=== PATIENT | female | born 1970 | race Caucasian/White ===

== ENCOUNTER 2017-02-23 09:39 | Emergency (ER) | payer OTHER ==
[2017-02-23] MEDS ORDERED: HYDROmorphone 1 MG/ML 1 ML SYRINGE IVP STA (10:08)
[2017-02-23] MEDS ORDERED: SODIUM CHLORIDE 0.9% 1,000 ML IV STA (10:08)
[2017-02-23] MEDS ORDERED: ONDANSETRON 4 MG/2 ML VIAL IVP STA (10:08)
[2017-02-23] MEDS ORDERED: RX INFO: IV CONTRAST WAS GIVEN 1 EACH MISC MISCELLANE PRN (10:08)
--- NOTE | 2017-02-23 10:19 | ED ---
Abdominal Pain HPI - General Chief Complaint: Abdominal Pain Stated Complaint: Abd Pain Time Seen by Provider: 02/23/17 09:56 Source: patient, RN notes reviewed Mode of arrival: ambulatory Limitations: no limitations - History of Present Illness Initial Comments: Is a 46-year-old female presents emergency Department chief complaint of abdominal pain since Wednesday. Patient states has progressively gotten worse. Patient complains of right flank pain and states that she hadn't noticed that her urine has been cloudy and has a foul odor. She states she has no history UTI denies any dysuria at this time. Patient states she's had a fever at home. Patient states she just feels very miserable nausea vomiting very minimal diarrhea. Denies any chest pain or shortness of breath no headache no dizziness no neck stiffness. Patient had no prior abdominal surgeries. Patient states that she is postmenopausal has no menstrual cycle at this time. - Related Data Home Medications Medication Instructions Recorded Confirmed ALPRAZolam [Xanax] 0.5 mg PO ONCE PRN 02/23/17 02/23/17 Ibuprofen [Motrin] 800 mg PO ONCE PRN 02/23/17 02/23/17 Previous Rx's Medication Instructions Recorded Ciprofloxacin HCl [Cipro] 500 mg PO Q12HR #20 tablet 02/23/17 Hydrocodone/Acetaminophen [[place] 1 tab PO Q6HR PRN #15 tab 02/23/17 5-325] Ondansetron Odt [Zofran Odt] 4 mg PO Q8HR PRN #10 tab 02/23/17 Allergies Allergy/AdvReac Type Severity Reaction Status Date / Time No Known Allergies Allergy Verified 02/23/17 12:09 Review of Systems ROS Statement: Those systems with pertinent positive or pertinent negative responses have been documented in the HPI. ROS Other: All systems not noted in ROS Statement are negative. Past Medical History Past Medical History: No Reported History History of Any Multi-Drug Resistant Organisms: None Reported Past Surgical History: No Surgical Hx Reported Past Psychological History: No Psychological Hx Reported Smoking Status: Current every day smoker Past Alcohol Use History: None Reported Past Drug Use History: None Reported General Exam Limitations: no limitations General appearance: alert, in no apparent distress Head exam: Present: atraumatic, normocephalic, normal inspection Neck exam: Present: normal inspection. Absent: tenderness, meningismus, lymphadenopathy Respiratory exam: Present: normal lung sounds bilaterally. Absent: respiratory distress, wheezes, rales, rhonchi, stridor Cardiovascular Exam: Present: regular rate, normal rhythm, normal heart sounds. Absent: systolic murmur, diastolic murmur, rubs, gallop, clicks GI/Abdominal exam: Present: soft, tenderness (Moderate lower abdominal tenderness), normal bowel sounds. Absent: distended, guarding, rebound, rigid Back exam: Absent: CVA tenderness (R), CVA tenderness (L) Course Vital Signs 02/23/17 02/23/17 02/23/17 09:49 10:13 11:58 Temperature 97.5 F L 100.0 F H 99.9 F H Pulse Rate 95 81 Respiratory 20 17 Rate Blood Pressure 110/67 99/55 O2 Sat by Pulse 99 100 Oximetry Medical Decision Making - Medical Decision Making 46-year-old female presented emergency department for abdominal discomfort right flank pain. Patient appears to have pyelonephritis she has mild leukocytosis and low-grade temp. Patient will be given 2 g Rocephin emergency Department IV fluids and started on ciprofloxacin at home. Patient was offered admission though she states that she would rather go home at this time. Patient has no right upper quadrant abdominal pain to correlate for her dilated ducts and no elevation of her liver enzymes. This most leg is benign finding. Patient will follow palpation for recheck and further workup as needed. - Lab Data Result diagrams: 02/23/17 10:40 02/23/17 10:40 Lab Results 02/23/17 02/23/17 02/23/17 Range/Units 10:40 10:40 10:40 WBC 11.7 H (3.8-10.6) k/uL RBC 4.45 (3.80-5.40) m/uL Hgb 13.6 (11.4-16.0) gm/dL Hct 39.8 (34.0-46.0) % MCV 89.5 (80.0-100.0) fL MCH 30.6 (25.0-35.0) pg MCHC 34.2 (31.0-37.0) g/dL RDW 12.6 (11.5-15.5) % Plt Count 224 (150-450) k/uL Neutrophils % 75 % Lymphocytes % 16 % Monocytes % 6 % Eosinophils % 1 % Basophils % 1 % Neutrophils # 8.8 H (1.3-7.7) k/uL Lymphocytes # 1.8 (1.0-4.8) k/uL Monocytes # 0.7 (0-1.0) k/uL Eosinophils # 0.1 (0-0.7) k/uL Basophils # 0.1 (0-0.2) k/uL Sodium 140 (137-145) mmol/L Potassium 4.3 (3.5-5.1) mmol/L Chloride 105 (98-107) mmol/L Carbon Dioxide 25 (22-30) mmol/L Anion Gap 10 mmol/L BUN 5 L (7-17) mg/dL Creatinine 0.62 (0.52-1.04) mg/dL Est GFR (MDRD) Af Amer >60 (>60 ml/min/1.73 sqM) Est GFR (MDRD) Non-Af >60 (>60 ml/min/1.73 sqM) Glucose 78 (74-99) mg/dL Plasma Lactic Acid Javid 0.8 (0.7-2.0) mmol/L Calcium 9.1 (8.4-10.2) mg/dL Total Bilirubin 0.4 (0.2-1.3) mg/dL AST 24 (14-36) U/L ALT 26 (9-52) U/L Alkaline Phosphatase 85 (38-126) U/L Total Protein 7.2 (6.3-8.2) g/dL Albumin 4.2 (3.5-5.0) g/dL Amylase 30 (30-110) U/L Lipase 32 (23-300) U/L Urine Color Urine Appearance (Clear) Urine pH (5.0-8.0) Ur Specific [place] (1.001-1.035) Urine Protein (Negative) Urine Glucose (UA) (Negative) Urine Ketones (Negative) Urine Blood (Negative) Urine Nitrite (Negative) Urine Bilirubin (Negative) Urine Urobilinogen (<2.0) mg/dL Ur Leukocyte Esterase (Negative) Urine RBC (0-5) /hpf Urine WBC (0-5) /hpf Ur Squamous Epith Cells (0-4) /hpf Urine Bacteria (None) /hpf Urine Mucus (None) /hpf Urine HCG, Qual (Not Detectd) 02/23/17 02/23/17 Range/Units 11:55 11:55 WBC (3.8-10.6) k/uL RBC (3.80-5.40) m/uL Hgb (11.4-16.0) gm/dL Hct (34.0-46.0) % MCV (80.0-100.0) fL MCH (25.0-35.0) pg MCHC (31.0-37.0) g/dL RDW (11.5-15.5) % Plt Count (150-450) k/uL Neutrophils % % Lymphocytes % % Monocytes % % Eosinophils % % Basophils % % Neutrophils # (1.3-7.7) k/uL Lymphocytes # (1.0-4.8) k/uL Monocytes # (0-1.0) k/uL Eosinophils # (0-0.7) k/uL Basophils # (0-0.2) k/uL Sodium (137-145) mmol/L Potassium (3.5-5.1) mmol/L Chloride (98-107) mmol/L Carbon Dioxide (22-30) mmol/L Anion Gap mmol/L BUN (7-17) mg/dL Creatinine (0.52-1.04) mg/dL Est GFR (MDRD) Af Amer (>60 ml/min/1.73 sqM) Est GFR (MDRD) Non-Af (>60 ml/min/1.73 sqM) Glucose (74-99) mg/dL Plasma Lactic Acid Javid (0.7-2.0) mmol/L Calcium (8.4-10.2) mg/dL Total Bilirubin (0.2-1.3) mg/dL AST (14-36) U/L ALT (9-52) U/L Alkaline Phosphatase (38-126) U/L Total Protein (6.3-8.2) g/dL Albumin (3.5-5.0) g/dL Amylase (30-110) U/L Lipase (23-300) U/L Urine Color Light Yellow Urine Appearance Clear (Clear) Urine pH 7.0 (5.0-8.0) Ur Specific [place] 1.007 (1.001-1.035) Urine Protein Trace H (Negative) Urine Glucose (UA) Negative (Negative) Urine Ketones Negative (Negative) Urine Blood Negative (Negative) Urine Nitrite Negative (Negative) Urine Bilirubin Negative (Negative) Urine Urobilinogen <2.0 (<2.0) mg/dL Ur Leukocyte Esterase Large H (Negative) Urine RBC 2 (0-5) /hpf Urine WBC 71 H (0-5) /hpf Ur Squamous Epith Cells <1 (0-4) /hpf Urine Bacteria Few H (None) /hpf Urine Mucus Rare H (None) /hpf Urine HCG, Qual Not Detected (Not Detectd) Disposition Clinical Impression: Pyelonephritis Disposition: HOME SELF-CARE Condition: Stable Instructions: Kidney Infection (ED) Additional Instructions: Please return to the Emergency Department if symptoms worsen or any other concerns. Prescriptions: Ciprofloxacin HCl [Cipro] 500 mg PO Q12HR #20 tablet Hydrocodone/Acetaminophen [[place] 5-325] 1 tab PO Q6HR PRN #15 tab PRN Reason: Pain Ondansetron Odt [Zofran Odt] 4 mg PO Q8HR PRN #10 tab PRN Reason: Nausea Referrals: None,Stated [Primary Care Provider] - 1-2 days Time of Disposition: 13:31
[2017-02-23 10:58] LABS: Basophils # (A) 0.1 k/uL (0-0.2); Basophils % (A) 1 %; CH 29.6; CHCM 33.3; Eosinophils # (A) 0.1 k/uL (0-0.7); Eosinophils % (A) 1 %; HCT 39.8 % (34.0-46.0); HGB 13.6 gm/dL (11.4-16.0); Luc # (Auto) 0.25; Luc % (Auto) 2; Lymphocytes # (A) 1.8 k/uL (1.0-4.8); Lymphocytes % (A) 16 %; MCH 30.6 pg (25.0-35.0); MCHC 34.2 g/dL (31.0-37.0); MCV 89.5 fL (80.0-100.0); Mean Platelet Volume 8.1; Monocytes # (A) 0.7 k/uL (0-1.0); Monocytes % (A) 6 %; Neutrophils # (A) 8.8 k/uL (1.3-7.7); Neutrophils % (A) 75 %; RBC 4.45 m/uL (3.80-5.40); RDW 12.6 % (11.5-15.5); WBC 11.7 k/uL (3.8-10.6); WBC (Perox) 11.91
[2017-02-23 11:10] LABS: ALT 26 U/L (9-52); AST 24 U/L (14-36); Alkaline Phosphatase 85 U/L (38-126); Amylase 30 U/L (30-110); Anion Gap 10 mmol/L; Blood Urea Nitrogen 5 mg/dL (7-17); Calcium 9.1 mg/dL (8.4-10.2); Carbon Dioxide 25 mmol/L (22-30); Chloride 105 mmol/L (98-107); Glucose 78 mg/dL (74-99); Non-African American GFR(MDRD) >60 (>60 ml/min/1.73 sqM); Potassium 4.3 mmol/L (3.5-5.1); Sodium 140 mmol/L (137-145); Total Bilirubin 0.4 mg/dL (0.2-1.3); Total Protein 7.2 g/dL (6.3-8.2)
[2017-02-23 12:20] LABS: Appearance,Urine Clear (Clear); Bacteria,Urine Few /hpf; Bilirubin,Urine Negative (Negative); Glucose,Urine (UA) Negative (Negative); Ketones,Urine Negative (Negative); Leukocyte Esterase,Urine Large (Negative); Mucus,Urine Rare /hpf; Nitrite,Urine Negative (Negative); Particle Count 2248; Protein,Urine Trace (Negative); RBC,Urine 2 /hpf (0-5); Specific Gravity,Urine 1.007 (1.001-1.035); Squamous Epithelial Cell,Urine <1 /hpf (0-4); UA Billing (MACRO vs. MICRO) MICRO; Urobilinogen,Urine <2.0 mg/dL (<2.0); WBC,Urine 71 /hpf (0-5)
--- NOTE | 2017-02-23 13:13 | CT ---
EXAMINATION TYPE: CT abdomen pelvis w con DATE OF EXAM: 02/23/2017 COMPARISON: NONE HISTORY: Abdominal pain CT DLP: 742 mGycm Automated exposure control for dose reduction was used. CONTRAST: CT scan of the abdomen pelvis is performed with IV Contrast, patient injected with 100 ml mL of Omnip aque 300. FINDINGS- LUNG BASES-subsegmental linear changes at the lung bases. 5 mm pleural-based nodule right lower lobe posteriorly. LIVER/GB-mild intrahepatic biliary prominence of the ducts. No obvious gallstone. Common bile duct me asures prominent distally at 9 mm. No definite stone. PANCREAS- No gross abnormality is seen. SPLEEN- No gross abnormality is seen. ADRENALS- No gross abnormality is seen. KIDNEYS/BLADDER-no hydronephrosis or nephrolithiasis. Small hypodensities within the kidneys are too small to characterize but likely related to cysts. There is a somewhat heterogeneous pattern of enhan cement of the kidneys. BOWEL- no bowel dilatation. Normal appendix. LYMPH NODES- No greater than 1cm abdominal or pelvic lymph nodes areappreciated. OSSEOUS STRUCTURES- No significant abnormality is seen. OTHER- 3.2 similar right adnexal cyst. Small amount of free fluid in the pelvis. Pelvic varices note d in the uterus somewhat heterogeneous. IMPRESSION- 1. Mild intra and extra hepatic biliary ductal dilation with no definite stone. Correlate with ERCP a s clinically warranted. 2. 3.2 cm right adnexal cyst likely ovarian with a small amount of free fluid. Pelvic varices and het erogeneous appearance of the uterus also noted correlate clinically. 3. Heterogeneous enhancement of the kidneys greater on the right. This can occasionally be related to the phase of imaging. Correlate with urinalysis to exclude pyelonephritis. Vasculitis also a conside ration. 4. 5 mm pleural-based nodule right lower lobe.
[2017-02-23] MEDS ORDERED: SODIUM CHLORIDE 0.9% 1,000 ML IV ONE (13:27)
[2017-02-23] MEDS ORDERED: ONDANSETRON 4 MG ODT STARTER PACK 2 TAB BTL PO STA (13:31)
[2017-02-23] MEDS ORDERED: cefTRIAXone 2,000 MG in SODIUM CHLORIDE 0.9% 100 ML IVPB STA (13:31)
[2017-02-23 13:36] VITALS: RESP 18
[2017-02-23] MEDS ORDERED: ACETAMINOPHEN TAB 500 MG TAB PO STA (14:48)
[2017-02-23 15:29] VITALS: BP 104/58; PULSE 83; TEMP 101.1
== END 2017-02-23 15:29 | disposition home or self-care (01) ==
LOC: EC 09:39
DX: N12 Tubulo-interstitial nephritis, not specified as acute or chronic (principal); D72.829 Elevated white blood cell count, unspecified; R11.2 Nausea with vomiting, unspecified; R19.7 Diarrhea, unspecified; F17.200 Nicotine dependence, unspecified, uncomplicated
CPT/HCPCS: 36415; 80053; 82150; 83605; 83690; 85025; 81001; 81025; 87040; 87086; 74177; 99284; 96365; 96375 ×2; 96361 ×2; J2405; J0696; J1170; Q9967; S0119; 87077; 87186

== ENCOUNTER 2017-07-21 19:16 | Inpatient (IN) | payer MEDICAID, OTHER ==
[2017-07-21] MEDS ORDERED: ACTIVATED CHARCOAL-SORBITOL 50 GM/240 ML BOTTLE PO STA (19:49)
--- NOTE | 2017-07-21 20:17 | ED ---
General Adult HPI - General Source: patient, police, EMS, RN notes reviewed Mode of arrival: EMS Limitations: no limitations <Benjamín Santiago - Last Filed: 07/21/17 20:15> <Magdi Gaston - Last Filed: 07/22/17 00:05> - General Chief complaint: Overdose Stated complaint: Suicidal Time Seen by Provider: 07/21/17 20:09 - History of Present Illness Initial comments: Patient is a 46-year-old female presenting to the emergency department following an overdose. Patient has difficulty with her kids. Patient states she took approximately 6 heart pills and 6 Xanax this morning. Patient states this was sometime around 8 or 9 this morning. No alcohol use. Patient is depressed with suicidal thoughts. No homicidal thoughts. No hallucinations. No alcohol or street drug use. (Benjamín Santiago) - Related Data Home Medications Medication Instructions Recorded Confirmed Ibuprofen [Motrin] 800 mg PO AC-BID PRN 02/23/17 07/21/17 ALPRAZolam [Xanax] 1 mg PO BID PRN 07/21/17 07/21/17 HYDROcodone/APAP 10-325MG [[place] 0.5 tab PO DAILY PRN 07/21/17 07/21/17 10-325] Metoprolol Succinate [Toprol XL] 12.5 mg PO DAILY 07/21/17 07/21/17 Venlafaxine HCl [Effexor XR] 37.5 mg PO DAILY 07/21/17 07/21/17 Allergies Allergy/AdvReac Type Severity Reaction Status Date / Time No Known Allergies Allergy Verified 07/21/17 19:44 Review of Systems ROS Other: All systems not noted in ROS Statement are negative. Constitutional: Denies: fever Eyes: Denies: eye pain ENT: Denies: ear pain Respiratory: Denies: cough Cardiovascular: Reports: chest pain (Patient has been having chest pain and anxiety recently) Endocrine: Denies: fatigue Gastrointestinal: Denies: abdominal pain Genitourinary: Denies: dysuria Musculoskeletal: Denies: back pain Skin: Denies: rash Neurological: Denies: weakness <Benjamín Santiago - Last Filed: 07/21/17 20:15> ROS Other: All systems not noted in ROS Statement are negative. <Magdi Gaston - Last Filed: 07/22/17 00:05> ROS Statement: Those systems with pertinent positive or pertinent negative responses have been documented in the HPI. Past Medical History Past Medical History: No Reported History History of Any Multi-Drug Resistant Organisms: None Reported Past Surgical History: No Surgical Hx Reported Past Psychological History: No Psychological Hx Reported Smoking Status: Current every day smoker Past Alcohol Use History: None Reported Past Drug Use History: Marijuana <Benjamín Santiago - Last Filed: 07/21/17 20:15> General Exam Limitations: no limitations General appearance: alert, in no apparent distress Head exam: Present: atraumatic Eye exam: Present: normal appearance ENT exam: Present: normal oropharynx Neck exam: Present: normal inspection Respiratory exam: Present: normal lung sounds bilaterally Cardiovascular Exam: Present: regular rate, normal rhythm Expanded Peripheral pulses: 2+: Radial (R), Radial (L), Dorsalis Pedis (R), Dorsalis Pedis (L) GI/Abdominal exam: Present: soft. Absent: tenderness Extremities exam: Present: normal inspection. Absent: pedal edema, calf tenderness Neurological exam: Present: alert Psychiatric exam: Present: depressed, flat affect Skin exam: Present: normal color <Benjamín Santiago - Last Filed: 07/21/17 20:15> Vital Signs 07/21/17 07/21/17 07/21/17 19:33 20:37 21:50 Temperature 97.6 F Pulse Rate 68 82 71 Pulse Rate [ Right] Respiratory 18 16 18 Rate Blood Pressure 104/60 115/63 99/71 Blood Pressure [Right Arm] O2 Sat by Pulse 98 98 98 Oximetry 07/22/17 00:00 Temperature 97.1 F L Pulse Rate Pulse Rate [ 77 Right] Respiratory 14 Rate Blood Pressure Blood Pressure 113/74 [Right Arm] O2 Sat by Pulse 98 Oximetry Medical Decision Making <Benjamín Santiago - Last Filed: 07/21/17 20:15> - Lab Data Result diagrams: 07/21/17 19:30 07/21/17 19:30 <Magdi Gaston - Last Filed: 07/22/17 00:05> - Medical Decision Making 46 female was seen and evaluated with psychiatry, patient will be admitted for psychiatric evaluation and treatment (Magdi Gaston) - Lab Data Lab Results 07/21/17 07/21/17 07/21/17 Range/Units 19:30 19:30 19:30 WBC 10.5 (3.8-10.6) k/uL RBC 4.34 (3.80-5.40) m/uL Hgb 12.5 (11.4-16.0) gm/dL Hct 40.1 (34.0-46.0) % MCV 92.6 (80.0-100.0) fL MCH 28.7 (25.0-35.0) pg MCHC 31.0 (31.0-37.0) g/dL RDW 14.4 (11.5-15.5) % Plt Count 212 (150-450) k/uL Neutrophils % 63 % Lymphocytes % 27 % Monocytes % 6 % Eosinophils % 1 % Basophils % 1 % Neutrophils # 6.6 (1.3-7.7) k/uL Lymphocytes # 2.9 (1.0-4.8) k/uL Monocytes # 0.6 (0-1.0) k/uL Eosinophils # 0.2 (0-0.7) k/uL Basophils # 0.1 (0-0.2) k/uL PT (9.0-12.0) sec INR (<1.2) Sodium 143 (137-145) mmol/L Potassium 4.3 (3.5-5.1) mmol/L Chloride 106 (98-107) mmol/L Carbon Dioxide 27 (22-30) mmol/L Anion Gap 10 mmol/L BUN 8 (7-17) mg/dL Creatinine 0.70 (0.52-1.04) mg/dL Est GFR (MDRD) Af Amer >60 (>60 ml/min/1.73 sqM) Est GFR (MDRD) Non-Af >60 (>60 ml/min/1.73 sqM) Glucose 73 L (74-99) mg/dL Calcium 9.5 (8.4-10.2) mg/dL Total Bilirubin 0.3 (0.2-1.3) mg/dL AST 31 (14-36) U/L ALT 37 (9-52) U/L Alkaline Phosphatase 69 (38-126) U/L Total Creatine Kinase 43 (30-135) U/L CK-MB (CK-2) 0.3 (0.0-2.4) ng/mL CK-MB (CK-2) Rel Index 0.7 Troponin I <0.012 (0.000-0.034) ng/mL Total Protein 7.2 (6.3-8.2) g/dL Albumin 4.2 (3.5-5.0) g/dL Urine HCG, Qual (Not Detectd) Salicylates <1.0 mg/dL Urine Opiates Screen (NotDetected) Ur Oxycodone Screen (NotDetected) Urine Methadone Screen (NotDetected) Ur Propoxyphene Screen (NotDetected) Acetaminophen <10.0 ug/mL Ur Barbiturates Screen (NotDetected) U Tricyclic Antidepress (NotDetected) Ur Phencyclidine Scrn (NotDetected) Ur Amphetamines Screen (NotDetected) U Methamphetamines Scrn (NotDetected) U Benzodiazepines Scrn (NotDetected) Urine Cocaine Screen (NotDetected) U Marijuana (THC) Screen (NotDetected) Serum Alcohol <10 mg/dL 07/21/17 07/21/17 07/21/17 Range/Units 19:30 21:27 21:27 WBC (3.8-10.6) k/uL RBC (3.80-5.40) m/uL Hgb (11.4-16.0) gm/dL Hct (34.0-46.0) % MCV (80.0-100.0) fL MCH (25.0-35.0) pg MCHC (31.0-37.0) g/dL RDW (11.5-15.5) % Plt Count (150-450) k/uL Neutrophils % % Lymphocytes % % Monocytes % % Eosinophils % % Basophils % % Neutrophils # (1.3-7.7) k/uL Lymphocytes # (1.0-4.8) k/uL Monocytes # (0-1.0) k/uL Eosinophils # (0-0.7) k/uL Basophils # (0-0.2) k/uL PT 10.6 (9.0-12.0) sec INR 1.1 (<1.2) Sodium (137-145) mmol/L Potassium (3.5-5.1) mmol/L Chloride (98-107) mmol/L Carbon Dioxide (22-30) mmol/L Anion Gap mmol/L BUN (7-17) mg/dL Creatinine (0.52-1.04) mg/dL Est GFR (MDRD) Af Amer (>60 ml/min/1.73 sqM) Est GFR (MDRD) Non-Af (>60 ml/min/1.73 sqM) Glucose (74-99) mg/dL Calcium (8.4-10.2) mg/dL Total Bilirubin (0.2-1.3) mg/dL AST (14-36) U/L ALT (9-52) U/L Alkaline Phosphatase (38-126) U/L Total Creatine Kinase (30-135) U/L CK-MB (CK-2) (0.0-2.4) ng/mL CK-MB (CK-2) Rel Index Troponin I (0.000-0.034) ng/mL Total Protein (6.3-8.2) g/dL Albumin (3.5-5.0) g/dL Urine HCG, Qual Not Detected (Not Detectd) Salicylates mg/dL Urine Opiates Screen Detected H (NotDetected) Ur Oxycodone Screen Not Detected (NotDetected) Urine Methadone Screen Not Detected (NotDetected) Ur Propoxyphene Screen Not Detected (NotDetected) Acetaminophen ug/mL Ur Barbiturates Screen Not Detected (NotDetected) U Tricyclic Antidepress Not Detected (NotDetected) Ur Phencyclidine Scrn Not Detected (NotDetected) Ur Amphetamines Screen Not Detected (NotDetected) U Methamphetamines Scrn Not Detected (NotDetected) U Benzodiazepines Scrn Detected H (NotDetected) Urine Cocaine Screen Not Detected (NotDetected) U Marijuana (THC) Screen Detected H (NotDetected) Serum Alcohol mg/dL Disposition <Benjamín Santiago - Last Filed: 07/21/17 20:15> <Magdi Gaston - Last Filed: 07/22/17 00:05> Clinical Impression: Drug overdose, Suicide attempt by multiple drug overdose Disposition: TRANSFER TO PSYCH HOSP/UNIT Condition: Fair
[2017-07-21 20:40] LABS: Basophils # (A) 0.1 k/uL (0-0.2); Basophils % (A) 1 %; Eosinophils # (A) 0.2 k/uL (0-0.7); Eosinophils % (A) 1 %; HCT 40.1 % (34.0-46.0); HGB 12.5 gm/dL (11.4-16.0); Lymphocytes # (A) 2.9 k/uL (1.0-4.8); Lymphocytes % (A) 27 %; MCH 28.7 pg (25.0-35.0); MCV 92.6 fL (80.0-100.0); Mean Platelet Volume 8.8; Monocytes # (A) 0.6 k/uL (0-1.0); Monocytes % (A) 6 %; Neutrophils # (A) 6.6 k/uL (1.3-7.7); Neutrophils % (A) 63 %; Platelet Count 212 k/uL (150-450); RBC 4.34 m/uL (3.80-5.40); RDW 14.4 % (11.5-15.5); WBC 10.5 k/uL (3.8-10.6)
[2017-07-21 20:47] LABS: INR 1.1 (<1.2); Prothrombin Time 10.6 sec (9.0-12.0)
[2017-07-21 20:51] LABS: ALT 37 U/L (9-52); AST 31 U/L (14-36); Acetaminophen <10.0 ug/mL; Albumin 4.2 g/dL (3.5-5.0); Alcohol <10 mg/dL; Alkaline Phosphatase 69 U/L (38-126); Anion Gap 10 mmol/L; Blood Urea Nitrogen 8 mg/dL (7-17); Calcium 9.5 mg/dL (8.4-10.2); Carbon Dioxide 27 mmol/L (22-30); Chloride 106 mmol/L (98-107); Glucose 73 mg/dL (74-99); Potassium 4.3 mmol/L (3.5-5.1); Salicylate <1.0 mg/dL; Sodium 143 mmol/L (137-145); Total Bilirubin 0.3 mg/dL (0.2-1.3); Total Protein 7.2 g/dL (6.3-8.2)
[2017-07-21 21:04] LABS: Creatine Kinase 43 U/L (30-135)
[2017-07-21 21:16] LABS: Creatine Kinase MB 0.3 ng/mL (0.0-2.4); Troponin I <0.012 ng/mL (0.000-0.034)
[2017-07-21 21:50] LABS: Amphetamine Screen,Urine Not Detected (NotDetected); Barbiturate Screen,Urine Not Detected (NotDetected); Benzodiazepines Screen,Urine Detected (NotDetected); Cocaine Screen,Urine Not Detected (NotDetected); Methadone Screen, Urine Not Detected (NotDetected); Opiate Screen,Urine Detected (NotDetected); Oxycodone Screen, Urine Not Detected (NotDetected); Phencyclidine Screen,Urine Not Detected (NotDetected); Tricyclic Antidepressant,Urine Not Detected (NotDetected); Urn Cannabinoid Scrn Detected (NotDetected)
[2017-07-21] MEDS ORDERED: MAG HYDROX/AL HYDROX/SIMETH 30 ML CUP PO PRN (23:14)
[2017-07-21] MEDS ORDERED: MAGNESIUM HYDROXIDE 2,400 MG/10 ML CUP PO PRN (23:14)
--- NOTE | 2017-07-22 10:56 | P.HP ---
Psychiatric H&P - . History & Physical: Allergies Allergy/AdvReac Type Severity Reaction Status Date / Time No Known Allergies Allergy Verified 07/21/17 19:44 Vital Signs Temp 97.4 F L 07/22/17 07:06 Pulse 80 07/22/17 07:06 Resp 16 07/22/17 07:06 BP 118/73 07/22/17 07:06 Pulse Ox 98 07/22/17 00:00 Intake & Output 07/21/17 07/22/17 07/22/17 18:59 06:59 18:59 Weight 53.3 kg Laboratory Last Values WBC 10.5 k/uL (3.8-10.6) 07/21/17 19:30 RBC 4.34 m/uL (3.80-5.40) 07/21/17 19:30 Hgb 12.5 gm/dL (11.4-16.0) 07/21/17 19:30 Hct 40.1 % (34.0-46.0) 07/21/17 19:30 MCV 92.6 fL (80.0-100.0) 07/21/17 19:30 MCH 28.7 pg (25.0-35.0) 07/21/17 19:30 MCHC 31.0 g/dL (31.0-37.0) 07/21/17 19:30 RDW 14.4 % (11.5-15.5) 07/21/17 19:30 Plt Count 212 k/uL (150-450) 07/21/17 19:30 Neutrophils % 63 % 07/21/17 19:30 Lymphocytes % 27 % 07/21/17 19:30 Monocytes % 6 % 07/21/17 19:30 Eosinophils % 1 % 07/21/17 19:30 Basophils % 1 % 07/21/17 19:30 Neutrophils # 6.6 k/uL (1.3-7.7) 07/21/17 19:30 Lymphocytes # 2.9 k/uL (1.0-4.8) 07/21/17 19:30 Monocytes # 0.6 k/uL (0-1.0) 07/21/17 19:30 Eosinophils # 0.2 k/uL (0-0.7) 07/21/17 19:30 Basophils # 0.1 k/uL (0-0.2) 07/21/17 19:30 PT 10.6 sec (9.0-12.0) 07/21/17 19:30 INR 1.1 (<1.2) 07/21/17 19:30 Sodium 143 mmol/L (137-145) 07/21/17 19:30 Potassium 4.3 mmol/L (3.5-5.1) 07/21/17 19:30 Chloride 106 mmol/L (98-107) 07/21/17 19:30 Carbon Dioxide 27 mmol/L (22-30) 07/21/17 19:30 Anion Gap 10 mmol/L 07/21/17 19:30 BUN 8 mg/dL (7-17) 07/21/17 19:30 Creatinine 0.70 mg/dL (0.52-1.04) 07/21/17 19:30 Est GFR (MDRD) Af Amer >60 (>60 ml/min/1.73 sqM) 07/21/17: Est GFR (MDRD) Non-Af >60 (>60 ml/min/1.73 sqM) 07/21/17 19:30 Glucose 73 mg/dL (74-99) L 07/21/17 19:30 Calcium 9.5 mg/dL (8.4-10.2) 07/21/17: Total Bilirubin 0.3 mg/dL (0.2-1.3) 07/21/17 19:30 AST 31 U/L (14-36) 07/21/17: ALT 37 U/L (9-52) 07/21/17 19: Alkaline Phosphatase 69 U/L (38-126) 07/21/17 19:30 Total Creatine Kinase 43 U/L (30-135) 07/21/17 19:30 CK-MB (CK-2) 0.3 ng/mL (0.0-2.4) 07/21/17 19: CK-MB (CK-2) Rel Index 0.7 07/21/17 19:30 Troponin I <0.012 ng/mL (0.000-0.034) 07/21/17 19:30 Total Protein 7.2 g/dL (6.3-8.2) 07/21/17 19:30 Albumin 4.2 g/dL (3.5-5.0) 07/21/17 19:30 TSH 3.380 mIU/L (0.465-4.680) 07/21/17 19:30 Urine HCG, Qual Not Detected (Not Detectd) 07/21/17 21:27 Salicylates <1.0 mg/dL 07/21/17 19:30 Urine Opiates Screen Detected (NotDetected) H 07/21/17 21:27 Ur Oxycodone Screen Not Detected (NotDetected) 07/21/17 21:27 Urine Methadone Screen Not Detected (NotDetected) 07/21/17 21:27 Ur Propoxyphene Screen Not Detected (NotDetected) 07/21/17 21:27 Acetaminophen <10.0 ug/mL 07/21/17 19:30 Ur Barbiturates Screen Not Detected (NotDetected) 07/21/17 21:27 U Tricyclic Antidepress Not Detected (NotDetected) 07/21/17 21:27 Ur Phencyclidine Scrn Not Detected (NotDetected) 07/21/17 21:27 Ur Amphetamines Screen Not Detected (NotDetected) 07/21/17 21:27 U Methamphetamines Scrn Not Detected (NotDetected) 07/21/17 21:27 U Benzodiazepines Scrn Detected (NotDetected) H 07/21/17 21:27 Urine Cocaine Screen Not Detected (NotDetected) 07/21/17 21:27 U Marijuana (THC) Screen Detected (NotDetected) H 07/21/17 21:27 Serum Alcohol <10 mg/dL 07/21/17 19:30 07/22/17 10:46 IDENTIFYING DATA: This patient is a 46-year-old female who was admitted to the mental health unit after a suicide attempt via medication overdose. HPI: The patient presents with a petition completed by a senior grants officer stating "Ms. Vicente stated she has wanted to hurt/kill herself every day for a while now ". The patient states that she has been severely depressed for an extended period of time. She states that her mood is depressed she feels hopeless she has frequently been tearful. Sleep has been poor appetite is decreased and energy has been low. She indicates that she will stay in bed all day due to a lack of motivation. She reported overdosing on 6 Xanax and 6 metoprolol yesterday. Prior to that she had written a suicide note telling her fianc it was not his fault and instructing him how to distribute her possessions. She stated to me this morning "I wanted to go to sleep and not wake up". She describes having anxiety constantly. It appears that she suffers from panic attacks. She felt overwhelmed yesterday because of an argument with her mother and sister whom are her closest supports. This occurs in the context of ongoing discord with her 3 adult children. Apparently recently her oldest daughter informed her that she is but she would never see her grandchild. The patient states she cannot survive this type of treatment from her family any longer. She endorses no history of hypomanic or manic episodes. She is endorsing no symptoms of psychosis. She denies having any firearms at home. PAST PSYCHIATRIC HISTORY: No prior inpatient psychiatric care no history of other suicide attempts. She has been treated with Zoloft Paxil Cymbalta in the past prescribed by primary care or gynecology. She states her primary care physician recently prescribed Effexor XR but she did not take the medication. She reports 2 of her friends took an antidepressant and hung themselves. PMH: Tachycardia treated with metoprolol, history of migraines she is prescribed [place], she's given Xanax as well by her primary care physician for insomnia ALLERGIES: NO KNOWN DRUG ALLERGIES MEDICATIONS: As above CHEMICAL DEPENDENCY HISTORY: She reports no use of alcohol, she uses marijuana more often recently she describes using no other illicit drugs she's never been placed in residential treatment for chemical dependency reasons FAMILY PSYCHIATRIC HISTORY: None reported, no suicides in the family FAMILY CHEMICAL DEPENDENCY HISTORY: None reported SOCIAL HISTORY: The patient is 46 years old she is she resides with her fiance of 6 years. She states that relationship is "the best". She has 3 adult children ages 20, 22, and 24. They do not reside with her. She has 1 brother and 1 sister. She identifies her sister and mother as being her primary supports. 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 She has no history of service. She graduated high school and attended 2 years of schooling afterwards. She states that her parents when she was very young and her mother primarily raised her area did they moved numerous times in [place] and across the country during childhood. She endorses no legal history she endorses no history of abuse MENTAL STATUS EXAM: The patient is a thin female appearing her stated age she is dressed in hospital gowns and is wearing a blanket over top. The patient endorses a depressed mood with hopelessness feelings. She admits that she attempted to end her life yesterday via medication overdose. With that said she lacks insight and is demanding to be discharged today and states she will not take an antidepressant medication. She reports constant feelings of anxiety. She demonstrates no tangential thinking loose associations or flight of ideas. Affect is dysphoric and tearful during the session. She demonstrates no verbal or physical aggressiveness. She demonstrates no abnormal involuntary movements. There is no evidence of hypomania or neyda at this time. She reports no auditory or visual hallucinations she is endorsing no specific delusions. Insight and judgment are impaired. She is oriented to person place and date. She is able to spell world backwards. STRENGTHS/WEAKNESSES: Strengths: Housing, supportive [facility] weaknesses: Recent overdose with lack of insight into need for treatment, discord with children INTELLECTUAL FUNCTIONING: Average IMPRESSIONS: [] 1. Major depressive disorder recurrent severe without psychosis, rule out generalized anxiety disorder, rule out cannabis use disorder 2. Rule out cluster B traits 3. Reported history of tachycardia and migraines PLAN: The patient has been admitted to the mental health unit she is unwilling to sign in voluntarily. She is an acute safety risk and requires further observation and treatment. I will complete a second clinical certificate so that she remains hospitalized for her safety. I attempted to discuss antidepressant options with her but she is refusing medication at this time. She indicates having severe panic attacks I will prescribe Ativan 1 mg up to twice daily as needed for anxiety at least temporarily. She will be seen by internal medicine for routine history and physical exam. If her blood pressure elevates or she demonstrates tachycardia we will reinitiate the metoprolol. Social work has attempted to reach the patient's fianc for collateral information. Social work has met with the patient to complete a psychosocial assessment. We'll monitor her for safety and encourage her participation in the milieu.
[2017-07-22] MEDS: LORazepam 1 MG TAB PO PRN (18:32)
--- NOTE | 2017-07-22 23:06 | CONS ---
CONSULTATION DATE OF SERVICE: 07/22/2017. REASON FOR CONSULTATION: Advice regarding overdose and other multiple medical issues requested by Dr. Johnson. HISTORY OF PRESENT ILLNESS: This 46-year-old woman with a past medical history of multiple medical problems, including history of smoking, history of THC, being followed by Dr. Lzi in the outpatient setting, apparently admitted after overdose of 6 Xanax and 6 metoprolol pills. There is no history of any fever, rigors. No history of headache, loss of consciousness, seizures. Patient has a significant history of depression. PAST MEDICAL HISTORY: History of nicotine dependence, history of THC. MEDICATIONS PRIOR TO ADMISSION: Include home medications are: 1. Effexor XR 37.5 mg p.o. daily. 2. The patient is now taking Toprol-XL 12.5 mg daily. 3. Motrin 800 mg b.i.d. p.r.n. 4. Sparks 10 mg daily p.r.n. 5. Xanax 1 mg daily b.i.d. p.r.n. ALLERGIES: None. FAMILY HISTORY: No history of heart disease, strokes in the family. SOCIAL HISTORY: History of smoking. History of THC. REVIEW OF SYSTEMS: ENT: No diminished hearing, diminished vision. CARDIOVASCULAR: No angina or palpitations. RESPIRATORY: No cough or hemoptysis. GI: No nausea, vomiting. : No dysuria. NERVOUS: No numbness, weakness. ALLERGY/IMMUNOLOGY: No asthma, hay fever. MUSCULOSKELETAL: As mentioned earlier. HEMATOLOGY/ONCOLOGY: No history of anemia. ENDOCRINE: No history of diabetes, hypothyroidism. CONSTITUTIONAL: As mentioned earlier. DERMATOLOGY: Negative. RHEUMATOLOGY: Negative. PSYCHIATRY: As mentioned earlier. PHYSICAL EXAMINATION: Alert and oriented x3. Pulse is 71, blood pressure 99/70, respirations 18, temperature 97.1, pulse ox 98% on room air. HEENT: Conjunctivae normal. Oral mucosa moist. NECK: No jugular venous distention. No carotid bruits. No lymph node enlargement. CARDIOVASCULAR: S1, S2 muffled. No S3. No S4. RESPIRATORY: Breath sounds diminished in the bases. No rhonchi. No crackles. ABDOMEN: Soft, nontender. No mass palpable. LEGS: No edema. No swelling. NERVOUS SYSTEM: Higher functions as mentioned earlier. Cranial nerves 2-12 grossly intact. Moves all 4 limbs. No focal motor or sensory deficits. LYMPHATICS: No lymph node in the neck or axillae. SKIN: No ulcer, rash or bleeding. LABS: At this time shows WBC 10.1, hemoglobin is 12.5 and glucose 73. Drug screen is positive for opiates and benzodiazepine, THC. ASSESSMENT: 1. Status post overdose of Xanax and metoprolol. 2. Depression. 3. Positive THC. 4. History of ongoing nicotine dependence. RECOMMENDATIONS AND DISCUSSION: In this 46-year-old woman who presented after overdose, at this time currently patient is medically stable. The basic labs, including the LFTs, also normal. I would recommend to continue to followup in the outpatient setting and otherwise smoking cessation has been advised. Will follow the patient closely with you. Thank you, Dr. Johnson, for letting us participate in this patient's care. Patient may be asked to follow up with Dr. Johnson closely. [id number] / ETHANN: [id number] /
[2017-07-23] MEDS: LORazepam 1 MG TAB PO PRN ×2 (08:24→17:13)
--- NOTE | 2017-07-23 11:22 | P.PN ---
Progress Note - Text interval history: The patient is found in the hallway she follows me to an interview room. She continues to endorse a depressed mood. Social work states they make contact with her fianc and her fianc states she has made more suicidal statements even while on the mental health unit. She reports having difficulty with sleep. We discussed her involuntary status and that she will have her deferral conference today. Again we discussed medication options in some detail. She was amenable to letting me start Lexapro and we discussed using trazodone at bedtime. She continues to not understand how she is expected to live without being involved in her children's lives or her grandchild's life. Mental status exam: The patient is alert she presents with adequate hygiene grooming she is dressed in her own clothing. Eye contact is appropriate speech is fluent spontaneous nonpressured. She maintains a bland affect throughout the session. She endorses a depressed and anxious mood with ongoing hopeless thoughts. She continues to assert it was her plan to when she took the medication overdose. There is no evidence of psychosis hypomania or neyda. She demonstrates no verbal or physical aggressiveness no abnormal involuntary movements. She remains oriented to person place and date. Plan: The patient will be started on Lexapro 10 mg daily trazodone 50 mg at bedtime Ativan 1 mg twice daily as needed for anxiety. We will monitor her for safety and encourage her participation in the milieu. She requires continued inpatient psychiatric care. We will await the outcome of her deferral conference.
[2017-07-23] MEDS: ESCITALOPRAM 10 MG TAB PO SCH (11:34)
[2017-07-23] MEDS: ACETAMINOPHEN TAB 325 MG TAB PO PRN (14:48)
[2017-07-23] MEDS ORDERED: traZODone HCL 50 MG TAB PO SCH (21:00)
[2017-07-24] MEDS: LORazepam 1 MG TAB PO PRN ×2 (00:34→18:57)
[2017-07-24] MEDS: ACETAMINOPHEN TAB 325 MG TAB PO PRN ×3 (00:34→12:10)
[2017-07-24] MEDS: ESCITALOPRAM 10 MG TAB PO SCH (09:11)
--- NOTE | 2017-07-24 11:45 | P.PN ---
Progress Note - Text interval history: The patient is found in group she follows me to an interview room. She reports having difficulty sleeping last night she reports not sleeping at all however staff recorded 5 hours. She states that she is attending groups and trying to make the best of it. She is happy that she is able to get input from younger patient's that are struggling with their mothers as she predominantly worries about her relationship with her children. She states she's had supportive conversations with her fianc and expects a visit from him this evening. Mental status exam: The patient is a thin female appearing her stated age she has good hygiene she is dressed in her own clothing. Eye contact is appropriate speech is fluent she reports ongoing sadness and hopelessness thinking but no acute suicidal ideation today she is starting to engage in the milieu. She is endorsing no symptoms of psychosis there is no evidence of hypomania or neyda. She demonstrates no verbal or physical aggressiveness or any abnormal involuntary movements. She remains oriented to person place and date. She maintains a constricted affect throughout the session. Plan: The patient will continue on her current medications however I will titrate the trazodone 100 mg at bedtime. She is encouraged not to nap during the day today. She has no questions regarding Lexapro. We will monitor her for safety and encourage full participation in the milieu.
[2017-07-24] MEDS ORDERED: traZODone HCL 100 MG TAB PO SCH (21:00)
[2017-07-25] MEDS: ACETAMINOPHEN TAB 325 MG TAB PO PRN (04:22)
[2017-07-25] MEDS: LORazepam 1 MG TAB PO PRN (04:22)
[2017-07-25] MEDS: ESCITALOPRAM 10 MG TAB PO SCH (09:34)
--- NOTE | 2017-07-25 15:07 | P.PN ---
Progress Note - Text Interval history: The patient is found in the hallway she follows me to an interview room. She reports her mood was good yesterday but she is concerned that she did not sleep last night. The trazodone provided no benefit. She is asking to go back on her Xanax as the Ativan has been ineffective. We discussed that should be her goal to not use of benzodiazepine but as we are just initiating antidepressant is reasonable frustrated use this as a temporary bridge. She has been attending groups she reports getting supportive phone calls from her fianc. Mental status exam: The patient is a thin female she is dressed room clothing eye contact is appropriate speech is fluent spontaneous nonpressured. She reports her mood is improving. She is reporting no acute suicidal or homicidal ideation intent or plan in the hospital. There is no evidence of psychosis she does not appear hypomanic or manic. Thought process is linear. She demonstrates no verbal or physical aggressiveness. Plan: The patient will continue on current medications we will discontinue the Ativan and prescribe Xanax 1 mg up to twice daily as needed. We will monitor her for safety and encourage her participation in the milieu. We will ask social work to facilitate a support meeting soon.
[2017-07-25] MEDS: ALPRAZolam 0.5 MG TAB PO PRN (16:57)
[2017-07-26] MEDS: ALPRAZolam 0.5 MG TAB PO PRN ×2 (08:43→20:29)
[2017-07-26] MEDS: ACETAMINOPHEN TAB 325 MG TAB PO PRN ×3 (08:43→20:29)
[2017-07-26] MEDS: ESCITALOPRAM 10 MG TAB PO SCH (08:43)
--- NOTE | 2017-07-26 09:49 | P.PN ---
Progress Note - Text Interval history: The patient is found in the [facility] he follows me to an interview room. She reports her mood is improved. She reports her sleep is improved as well. She has been attending groups. She had a good meeting with her fianc last evening. Social work is alert he approached the patient about setting up a support meeting and we discussed trying to arrange that for tomorrow prior to discharge. Mental status exam: The patient is a thin female she seated calmly she is dressed in her own clothing. She reports her mood is improving every day. She is reporting no acute suicidal or homicidal ideation intent or plan and there is no evidence of psychosis hypomania or neyda. She asked several relevant questions during the course of the session today and those were answered. She demonstrated no verbal or physical aggressiveness she demonstrates no abnormal involuntary movements. She remains oriented to person place and date. Plan: The patient will continue on the Lexapro and Xanax as written we will monitor her for safety and encourage her participation in the milieu. If she remains clinically stable we will plan to discharge her tomorrow following the support meeting. Vital signs reviewed. She is reporting some headaches and we discussed that this may be from the Lexapro but it also may be from withdrawal from caffeine and nicotine. She reports that is her plan to discontinue cigarette smoking once discharged.
[2017-07-27 06:46] VITALS: BP 104/52; PULSE 54; RESP 16; TEMP 97.8
--- NOTE | 2017-07-27 09:12 | P.DS ---
Providers Date of admission: 07/21/17 23:12 Expected date of discharge: 07/27/17 Attending physician: Brennen Johnson Consults: 07/21/17 23:14 Consult Physician Routine Consulting Provider: Gurpreet Abebe Consult Reason/Comments: H and P Do you want consulting provider notified?: Yes, Notify in am Primary care physician: Agusto Collins - Discharge Diagnosis(es) (1) Major depressive disorder, recurrent severe without psychotic features Current Visit: Yes Status: Acute Priority: High Hospital Course: Brief summary of admission note: This patient is a 46-year-old female who was admitted to the mental health unit after a suicide attempt via medication overdose. The patient had presented after she overdosed on metoprolol and Xanax. She had written a suicide note. She felt overwhelmed after having verbal altercations with family members. She impulsively felt hopeless and overdosed with medication. For full details please refer to my psychiatric evaluation note dated 07/22/2017. Summary of hospital course: The patient was admitted to the mental health unit she presented with a petition and clinical certificate. Initially she was not agreeable to voluntary hospitalization but it was necessary for further evaluation and treatment. I completed a second clinical certificate. A mitigation supervisor did come out meet with her and she deferred a court hearing. Soon into the admission however the patient became cooperative. She did engage in the milieu and found groups helpful. She had contact with family members her fianc continue to be supportive. She was relieved after receiving a message from her daughters boyfriend that she would be able to see her grandchild when the grandchild was born. We spent some time discussing assumptions that the patient makes and how to cognitively reframe some situations. We initiated Lexapro for treatment of her depression and anxiety. She was continued on her Xanax but was instructed that this should be a temporary measure and once the Lexapro is effective the Xanax should be tapered off. She demonstrated no verbal or physical aggressiveness. She was seen by the internal medicine physician for routine history and physical exam. The patient reported progressive improvement in her symptoms and reported a complete resolution of any suicidal ideation. Mental status exam: The patient is a thin female appearing her stated age. She is dressed in her own clothing. Eye contact is appropriate speech is fluent spontaneous nonpressured. She reports her mood is good her affect is euthymic and is congruent to reported mood. She reports no suicidal or homicidal ideation intent or plan. There is no report or evidence of psychotic symptoms thought process is linear she demonstrates no tangential thinking loose associations or flight of ideas there is no evidence of hypomania or neyda. She demonstrates no verbal or physical aggressiveness. She is oriented to person place and date. She is able to describe future oriented thoughts. Impressions 1. Depressive disorder recurrent severe without psychosis, rule out cannabis use disorder 2. Rule out cluster B traits 3. History of tachycardia and migraines Plan: The patient will be discharged mental health unit today to return home. Social work has arranged a family meeting involving her fianc. The patient will continue on Lexapro 10 mg daily Xanax 1 mg up to twice daily as needed. We discussed that the Xanax should eventually be tapered off once the Lexapro demonstrates efficacy for depression and anxiety symptoms. She will be scheduled for outpatient mental health services to be arranged by social work. The patient is not seen to be at imminent safety risk she is appropriate for transition outpatient care. She is instructed to return to the hospital with any acute safety concerns. Patient Condition at Discharge: Stable Plan - Discharge Summary Discharge Rx Participant: No New Discharge Prescriptions: New Acetaminophen Tab [Tylenol] 650 mg PO Q4HR PRN tab PRN Reason: Pain/Discomfort ALPRAZolam [Xanax] 1 mg PO BID PRN tab PRN Reason: Anxiety Escitalopram [Lexapro] 10 mg PO DAILY #30 tab Discontinued Ibuprofen [Motrin] 800 mg PO AC-BID PRN PRN Reason: Pain Metoprolol Succinate [Toprol XL] 12.5 mg PO DAILY HYDROcodone/APAP 10-325MG [[place] 10-325] 0.5 tab PO DAILY PRN PRN Reason: Pain ALPRAZolam [Xanax] 1 mg PO BID PRN PRN Reason: Anxiety Discharge Medication List ALPRAZolam [Xanax] 1 mg PO BID PRN tab 07/27/17 [Rx] Acetaminophen Tab [Tylenol] 650 mg PO Q4HR PRN tab 07/27/17 [Rx] Escitalopram [Lexapro] 10 mg PO DAILY #30 tab 07/27/17 [Rx] Follow up Appointment(s)/Referral(s): Dennis Liz MD [Primary Care Provider] - 1-2 days Patient Instructions/Handouts: How to Stop Smoking (DC), Suicide Prevention for Adults (DC) Activity/Diet/Wound Care/Special Instructions: Take all medications as prescribed and keep your follow up appointment. Do not drink alcohol or use any street drugs. Crisis Line [phone]
[2017-07-27] MEDS: ESCITALOPRAM 10 MG TAB PO SCH (09:26)
[2017-07-27] MEDS: ALPRAZolam 0.5 MG TAB PO PRN (09:26)
== END 2017-07-27 15:14 | disposition home or self-care (01) | DRG 885 ==
LOC: EC 19:16 → 3MHU 23:12
PROVIDERS: ADMIT Psychiatry & Neurology Psychiatry; ATTEND Psychiatry & Neurology Psychiatry
DX: F33.2 Major depressive disorder, recurrent severe without psychotic features (principal); F17.210 Nicotine dependence, cigarettes, uncomplicated; F41.0 Panic disorder [episodic paroxysmal anxiety]; G47.00 Insomnia, unspecified; R51 Headache; T44.7X2A Poisoning by beta-adrenoreceptor antagonists, intentional self-harm, initial encounter; R00.0 Tachycardia, unspecified; T42.4X2A Poisoning by benzodiazepines, intentional self-harm, initial encounter; Z71.6 Tobacco abuse counseling; Z86.69 Personal history of other diseases of the nervous system and sense organs; Z79.899 Other long term (current) drug therapy; Z79.891 Long term (current) use of opiate analgesic; Z79.1 Long term (current) use of non-steroidal anti-inflammatories (NSAID)
CPT/HCPCS: 36415; 80053; 80306; 80320; 81025; 82075; 82550; 82553; 83520; 84443; 84484; 85025; 85610; 99285

== ENCOUNTER 2017-07-31 11:44 | Emergency (ER) | payer MEDICAID, OTHER ==
[2017-07-31 11:48] VITALS: BP 123/67; PULSE 69; RESP 20; TEMP 97.5
--- NOTE | 2017-07-31 12:25 | ED ---
General Adult HPI - General Chief complaint: Recheck/Abnormal Lab/Rx Stated complaint: Medication refill Time Seen by Provider: 07/31/17 11:59 Source: patient Mode of arrival: ambulatory Limitations: no limitations - History of Present Illness Initial comments: 46-year-old female presents for medication refill. Patient was admitted to [facility] under Dr. Johnson last week for depression. Patient states she needs a refill on Xanax today. She states Dr. Balbuena would not refill even though he is given to her in the past. Patient has been set up with psychiatrist [place] but does not technically see him until September but is connected try to get into him sooner. Patient states she is doing better she is more stable this week. Patient at bedside with her . Patient denies any suicidal homicidal ideation at this time. Illness or upper history symptoms. No recent fevers. - Related Data Previous Rx's Medication Instructions Recorded ALPRAZolam [Xanax] 1 mg PO BID PRN tab 07/27/17 Acetaminophen Tab [Tylenol] 650 mg PO Q4HR PRN tab 07/27/17 Escitalopram [Lexapro] 10 mg PO DAILY #30 tab 07/27/17 ALPRAZolam [Xanax] 1 mg PO Q12HR #10 tab 07/31/17 Allergies Allergy/AdvReac Type Severity Reaction Status Date / Time No Known Allergies Allergy Verified 07/31/17 11:48 Review of Systems ROS Statement: Those systems with pertinent positive or pertinent negative responses have been documented in the HPI. ROS Other: All systems not noted in ROS Statement are negative. Constitutional: Reports: as per HPI Respiratory: Denies: cough, dyspnea Cardiovascular: Denies: chest pain, palpitations Endocrine: Denies: fatigue Psychiatric: Reports: anxiety, depression Past Medical History Past Medical History: No Reported History History of Any Multi-Drug Resistant Organisms: None Reported Past Surgical History: No Surgical Hx Reported Past Psychological History: Anxiety, Depression Smoking Status: Current every day smoker Past Alcohol Use History: None Reported Past Drug Use History: Marijuana General Exam Limitations: no limitations General appearance: alert, in no apparent distress Eye exam: Present: normal appearance, PERRL, EOMI. Absent: scleral icterus, conjunctival injection, periorbital swelling ENT exam: Present: normal exam, mucous membranes moist Neck exam: Present: normal inspection. Absent: tenderness, meningismus, lymphadenopathy Respiratory exam: Present: normal lung sounds bilaterally. Absent: respiratory distress, wheezes, rales, rhonchi, stridor Cardiovascular Exam: Present: regular rate, normal rhythm, normal heart sounds. Absent: systolic murmur, diastolic murmur, rubs, gallop, clicks GI/Abdominal exam: Present: soft, normal bowel sounds. Absent: distended, tenderness, guarding, rebound, rigid Course Vital Signs 07/31/17 11:46 Temperature 97.5 F L Pulse Rate 69 Respiratory 20 Rate Blood Pressure 123/67 O2 Sat by Pulse 99 Oximetry Medical Decision Making - Medical Decision Making Discussed with Dr. Nunez that we will refill her medications for a few days patient does need to seek a psychiatrist her PCP for further refills. Patient explained that we will not refill her medications through the emergency room in the future. Disposition Clinical Impression: Encounter for medication refill, Major depressive disorder, recurrent severe without psychotic features Disposition: HOME SELF-CARE Condition: Good Prescriptions: ALPRAZolam [Xanax] 1 mg PO Q12HR #10 tab Referrals: Dennis Liz MD [Primary Care Provider] - 1-2 days Time of Disposition: 12:29
== END 2017-07-31 12:38 | disposition home or self-care (01) ==
LOC: EC 11:44
DX: F33.2 Major depressive disorder, recurrent severe without psychotic features (principal); Z76.0 Encounter for issue of repeat prescription; F17.200 Nicotine dependence, unspecified, uncomplicated
CPT/HCPCS: 99281

== ENCOUNTER → 2018-05-13 | Outpatient (CLI) | payer OTHER ==
--- NOTE | 2018-05-13 08:34 | US ---
EXAMINATION TYPE: US abdomen complete DATE OF EXAM: 05/13/2018 COMPARISON: NONE CLINICAL HISTORY: N83.209 Ovarian Cyst. LLQ pain, known ovarian cyst, no abd complaints, very thin pa tient EXAM MEASUREMENTS: Liver Length: 13.7 cm Gallbladder Wall: 0.2 cm CBD: 0.5 cm Spleen: N/A Right Kidney: 9.1 x 4.6 x 5.3 cm Left Kidney: 11.0 x 4.5 x 5.5 cm thin body habitus and bowel gas limits exam Pancreas: wnl Liver: wnl Gallbladder: wnl Evidence for sonographic Carcamo's sign: no CBD: wnl Spleen: placement is high within ribcage that I coud not visualize even when rolling patient. Right Kidney: wnl Left Kidney: renal fullness seen Upper IVC: wnl Abd Aorta: wnl The liver is homogenous. The intrahepatic portion of the IVC and proximal abdominal aorta are within normal limits. There is no evidence of cholelithiasis. Common bile duct is unremarkable. The visu alized portions of the pancreas are homogenous. The spleen is unremarkable. Kidneys are symmetric a nd free of hydronephrosis. No renal lesions are seen. IMPRESSION: 1. No distinct abnormality appreciated.
--- NOTE | 2018-05-13 08:39 | US ---
EXAMINATION TYPE: US pelvic complete DATE OF EXAM: 05/13/2018 COMPARISON: NONE CLINICAL HISTORY: N83.209 Ovarian Cyst. LLQ pain, h/o rt adnexal/ovarian cyst, patient states increas ed urgency to urinate TECHNIQUE: TA. Transabdominal sonographic images of the pelvis were acquired. No TV approach today Date of LMP: 3 yrs ago EXAM MEASUREMENTS: Uterus: 8.5 x 5.9 x 5.2 cm Endometrial Stripe: 0.5 cm Right Ovary: 2.8 x 1.8 x 1.2 cm Left Ovary: 2.5 x 2.3 x 2.2 cm 1. Uterus: Anteverted heterogenous with no obvious abnormality noted 2. Endometrium: wnl 3. Right Ovary: 1.1cm cystic lesion seen 4. Left Ovary: wnl 5. Bilateral Adnexa: wnl 6. Posterior cul-de-sac: wnl IMPRESSION: 1. Right ovarian cystic lesion is likely functional in nature. This can be confirmed with follow-up i n 6 weeks.
[2018-05-13 08:54] LABS: HCT 43.8 % (34.0-46.0); HGB 14.1 gm/dL (11.4-16.0); MCH 29.4 pg (25.0-35.0); MCHC 32.1 g/dL (31.0-37.0); MCV 91.4 fL (80.0-100.0); Mean Platelet Volume 7.7; Platelet Count 246 k/uL (150-450); WBC 6.8 k/uL (3.8-10.6)
[2018-05-13 09:06] LABS: ALT 27 U/L (9-52); AST 26 U/L (14-36); Albumin 4.1 g/dL (3.5-5.0); Alkaline Phosphatase 75 U/L (38-126); Anion Gap 5 mmol/L; Blood Urea Nitrogen 7 mg/dL (7-17); Calcium 9.6 mg/dL (8.4-10.2); Carbon Dioxide 30 mmol/L (22-30); Chloride 105 mmol/L (98-107); Cholesterol 173 mg/dL (<200); Glucose 85 mg/dL (74-99); HDL Cholesterol 45 mg/dL (40-60); LDL Cholesterol,Calculated 114 mg/dL (0-99); Potassium 5.3 mmol/L (3.5-5.1); Sodium 140 mmol/L (137-145); Total Bilirubin 0.4 mg/dL (0.2-1.3); Total Protein 7.2 g/dL (6.3-8.2); Triglycerides 68 mg/dL (<150)
== END | disposition home or self-care (01) ==
LOC: RADUSWWP 07:43
PROVIDERS: ATTEND Family Medicine
DX: N83.201 Unspecified ovarian cyst, right side (principal); Z00.00 Encounter for general adult medical examination without abnormal findings
CPT/HCPCS: 36415; 76700; 76856; 80053; 80061; 85027

== ENCOUNTER 2020-06-21 15:53 | Emergency (ER) | payer OTHER ==
[2020-06-21 15:58] VITALS: RESP 18
[2020-06-21] MEDS ORDERED: METOCLOPRAMIDE 5 MG/ML 2 ML VIAL IVP STA (16:48)
[2020-06-21] MEDS ORDERED: diphenhydrAMINE 50 MG/ML 1 ML VIAL IVP STA (16:48)
[2020-06-21] MEDS ORDERED: SODIUM CHLORIDE 0.9% 1,000 ML IV STA (16:48)
[2020-06-21] MEDS ORDERED: KETOROLAC 15 MG/ML 1 ML VIAL IVP STA (16:48)
--- NOTE | 2020-06-21 16:55 | ED ---
Headache HPI - General Chief Complaint: Headache Stated Complaint: Migraine, sent by for a CT Time Seen by Provider: 06/21/20 16:16 Mode of arrival: ambulatory Limitations: no limitations - History of Present Illness Initial Comments: Patient is a 49-year-old female presenting to the emergency Department with complaints of a headache 9 days. Patient states her headache started at the front of her head and has progressively getting worse. She states she's been taking Excedrin Migraine but is not helping. Patient denies any lightheadedness, dizziness, changes in her vision, nausea or vomiting. She does admit to light sensitivity. She denies any trauma or falls to her head. She denies being on blood thinners. She denies any changes in her medications. She denies any fever or chills. She has no further complaints at this time. Upon arrival to the ER, her vital signs are stable. - Related Data Home Medications Medication Instructions Recorded Confirmed ALPRAZolam [Xanax] 0.5 mg PO BID PRN 06/21/20 06/21/20 ALPRAZolam [Xanax] 0.5 mg PO HS 06/21/20 06/21/20 Aspirin/Acetaminophen/Caffeine 2 tab PO DAILY PRN 06/21/20 06/21/20 [Excedrin Migraine Caplet] Escitalopram [Lexapro] 20 mg PO HS 06/21/20 06/21/20 Allergies Allergy/AdvReac Type Severity Reaction Status Date / Time No Known Allergies Allergy Verified 06/21/20 17:43 Review of Systems ROS Statement: Those systems with pertinent positive or pertinent negative responses have been documented in the HPI. ROS Other: All systems not noted in ROS Statement are negative. Past Medical History Past Medical History: No Reported History History of Any Multi-Drug Resistant Organisms: None Reported Past Surgical History: No Surgical Hx Reported Past Psychological History: Anxiety, Depression Past Alcohol Use History: None Reported Past Drug Use History: Marijuana General Exam - General Exam Comments Initial Comments: GENERAL: Patient is well-developed and well-nourished. Patient is nontoxic and in no acute distress. HEAD: Atraumatic, normocephalic. EYES: Pupils equal round and reactive to light, extraocular movements intact, sclera anicteric, conjunctiva are normal. Eyelids were unremarkable. ENT: TMs normal, nares patent, oropharynx clear without exudates. Moist mucous membranes. NECK: Normal range of motion, supple without lymphadenopathy or JVD. LUNGS: Unlabored respirations. Breath sounds clear to auscultation bilaterally and equal. No wheezes rales or rhonchi. HEART: Regular rate and rhythm without murmurs, rubs or gallops. ABDOMEN: Soft, nontender, normoactive bowel sounds. No guarding, no rebound. No masses appreciated. : Deferred MUSCULOSKELETAL: Normal extremities with adequate strength and normal range of motion, no pitting or edema. No clubbing or cyanosis. NEUROLOGICAL: Patient is alert and oriented x 3. Motor and sensory are also intact. Cranial nerves II through XII grossly intact. Symmetrical smile. Normal speech, normal gait. PSYCH: Normal mood, normal affect. SKIN: Warm, Dry, normal turgor, no rashes or lesions noted. Limitations: no limitations Course Vital Signs 06/21/20 06/21/20 15:54 19:04 Temperature 97.7 F Pulse Rate 51 L 71 Respiratory 18 18 Rate Blood Pressure 129/73 117/66 O2 Sat by Pulse 99 99 Oximetry Medical Decision Making - Medical Decision Making Patient is a 49-year-old female here with a headache 9 days. She was sent in by her PCP for a computed tomography scan. She does not have a history of headaches or migraines. She denies any falls or trauma. Her vital signs are stable. Her exam is unremarkable, no acute neuro deficits. I did order a CT of the brain, which shows no acute abnormalities. I did give patient some fluids, pain control and Reglan, she does report improvement in her symptoms. Patient is stable for discharge. She'll follow up with her PCP. Return parameters were discussed with the patient and she verbalized understanding. - Lab Data Lab Results 06/21/20 Range/Units 18:00 Coronavirus (PCR) Not Detected (Not Detectd) Disposition Clinical Impression: Headache Disposition: HOME SELF-CARE Condition: Stable Instructions (If sedation given, give patient instructions): Acute Headache (ED) Additional Instructions: Please return to the Emergency Department if symptoms worsen or any other concerns. Covid test is negative, CT scan of brain is normal. Drink lots of fluids, rest. Follow-up with PCP in 1-3 days. Is patient prescribed a controlled substance at d/c from ED?: No Referrals: Sam Zhao MD [Primary Care Provider] - 1-2 days
[2020-06-21] MEDS ORDERED: MORPHINE SULFATE 4 MG/ML SYRINGE IVP STA (18:26)
--- NOTE | 2020-06-21 18:32 | CT ---
EXAMINATION TYPE: CT brain wo con DATE OF EXAM: 06/21/2020 COMPARISON: None HISTORY: Headache for 9 days with sensitivity to light. CT DLP: 1143.4 mGycm Automated exposure control for dose reduction was used. Ventricles and sulci appear normal. There is no mass effect nor midline shift. There is no sign of in tracranial hemorrhage. Calvarium is intact. There is no evidence of cerebral edema. IMPRESSION: Negative unenhanced head CT scan.
[2020-06-21 19:51] VITALS: BP 124/71; PULSE 75; TEMP 97.9
== END 2020-06-21 19:51 | disposition home or self-care (01) ==
LOC: EC 15:53
DX: R51.9 Headache, unspecified (principal); F41.9 Anxiety disorder, unspecified; F32.9 Major depressive disorder, single episode, unspecified; Z79.899 Other long term (current) drug therapy; Z20.828 Contact with and (suspected) exposure to other viral communicable diseases
CPT/HCPCS: 87635; 70450; 99284; 96374; 96375 ×3; 96361; J2270; J1200; J2765; J1885

== ENCOUNTER 2024-03-08 17:44 | Emergency (ER) | payer OTHER ==
--- NOTE | 2024-04-17 14:38 | XR ---
Sadia Pedro ID: [id number] : 1970 EXAMINATION TYPE: XR shoulder complete 3 views RT DATE OF EXAM: 03/08/2024 Comparison: None Clinical History: 53-year-old female with pain Findings: Moderate degenerative change of the AC joint with joint space narrowing and capsular hypertrophy. Sub acromial space is preserved. No tendinous or bursal calcifications. Small delineation to the greater tuberosity. No acute fracture, subluxation, dislocation. Impression: Moderate AC joint OA. No acute osseous abnormality seen.
== END 2024-03-08 23:26 | disposition home or self-care (01) ==
LOC: MERGE 17:44 → EC 17:44
CPT/HCPCS: 82075; 99283